=== PATIENT | male | born 1960 | race Caucasian/White ===

== ENCOUNTER 2019-12-16 21:44 | Emergency (ER) | payer MEDICAID ==
[~2019-12-16] VITALS: Ht 165.1 cm; Wt 81.6 kg
[2019-12-16 22:44] VITALS: BP 143/86
--- NOTE | 2019-12-16 23:02 | NUR ---
PATIENT CAME TO ER BED 11 C/O HEARING VOICES AND PLANNING TO OVERDOSE ON HIS MEDS. PATIENT IS AAOX4. NO SOB. BREATHING EVENLY AND UNLABORED ON ROOM AIR. PATIENT IS CONNECTED TO MONITOR. SITTER AT BEDSIDE. PATIENT IS CHANGED INTO A GOWN, WITH BELONGINGS REMOVED AND PLACED SAFELY IN A LOCKER.
[2019-12-16 23:04] LABS: BASOPHILS # (AUTO) 0.1 /CMM (0.0-0.2); BASOPHILS % (AUTO) 0.7 % (0.0-2.0); EOSINOPHILS % (AUTO) 2.3 % (0.0-6.0); HEMATOCRIT 51 % (39-51); HEMOGLOBIN 17.2 g/dL (13.5-17.5); LYMPHOCYTES # (AUTO) 3.1 /CMM (0.8-4.8); LYMPHOCYTES % (AUTO) 28.1 % (20.0-44.0); MEAN CORPUSCULAR HGB CONC 34 g/dl (31.0-36.0); MEAN CORPUSCULAR VOLUME 97 fL (80-96); NEUTROPHILS # (AUTO) 6.6 /CMM (1.8-8.9); NEUTROPHILS % (AUTO) 59.9 % (43.0-81.0); PLATELET COUNT (AUTO) 283 /CMM (150-450); RED BLOOD CELL COUNT(AUTO) 5.22 MIL/uL (4.5-6.0)
[2019-12-16 23:10] LABS: APPEARANCE,URINE Clear (CLEAR); BACTERIA,URINE None seen /HPF (None Seen); BILIRUBIN,URINE Negative (NEGATIVE); BLOOD, URINE Negative Ery/uL (NEGATIVE); COLOR,URINE Yellow (YELLOW); KETONES,URINE Negative (NEGATIVE); LEUKOCYTE ESTERASE ,URINE Negative (NEGATIVE); NITRITE, URINE Negative (NEGATIVE); PROTEIN,URINE Negative (NEGATIVE); RBC,URINE NONE SEEN /HPF (0-2); SQUAMOUS EPITHELIAL CELL,UR Rare /HPF (None Seen); UGLUCOSE >=1000 mg/dL (NEGATIVE); UROBILINOGEN,URINE 0.2 EU/dL (0.2); WBC,URINE NONE SEEN /HPF (0-3)
--- NOTE | 2019-12-16 23:10 | NUR ---
urine collected and sent to the lab.
[2019-12-16 23:13] LABS: CALCIUM, SERUM 9.7 mg/dL (8.5-10.1); CARBON DIOXIDE 21 mmol/L (21-32); CHLORIDE 101 mmol/L (98-107); CREATININE 1.1 mg/dL (0.6-1.3); GLUCOSE 291 mg/dL (74-106); POTASSIUM 3.5 mmol/L (3.5-5.1); SODIUM SERUM 136 mmol/L (136-145); UREA NITROGEN, BLOOD 28 mg/dL (7-18)
[2019-12-16 23:18] LABS: ALANINE AMINOTRANSFERASE 39 U/L (12-78); ALBUMIN 3.9 g/dL (3.4-5.0); ALKALINE PHOSPHATASE 92 U/L (46-116); ASPARTATE AMINOTRANSFERASE 22 U/L (15-37); BILIRUBIN,DIRECT 0.2 mg/dL (0.0-0.2); TOTAL PROTEIN, SERUM 8.2 g/dL (6.4-8.2)
[2019-12-16 23:21] LABS: ACETAMINOPHEN < 2 ug/ml (10-30); SALICYLATE 0.3 mg/dL (2.8-20.0)
[2019-12-16] MEDS ORDERED: IV NS 0.9% 1,000 ML BAG IV ONE (23:30)
[2019-12-16] MEDS ORDERED: INSULIN REGULAR, HUMAN 100 UNIT/ML 10 ML VIAL IV ONE (23:30)
[2019-12-17] MEDS ORDERED: ACETAMINOPHEN ES 500 MG TABLET PO ONE
[2019-12-17] MEDS ORDERED: ACETAMINOPHEN ES 500 MG TABLET ONE (00:27)
[2019-12-17] MEDS ORDERED: INSULIN REGULAR, HUMAN 100 UNIT/ML 10 ML VIAL ONE (00:27)
[2019-12-17 00:46] LABS: ALCOHOL, BLOOD < 3 mg/dL (0-0)
--- NOTE | 2019-12-17 02:07 | NUR ---
PT ACCEPTED AT [facility] PT WILL GO TO UNIT 1 PHONE# FOR REPORT ACCEPTING MD GALO.
--- NOTE | 2019-12-17 02:10 | NUR ---
PATIENT IS SLEEPING. EASILY AROUSABLE THROUGH VERBAL AND MECHANICAL STIMULI. CONNECTED TO THE MONITOR. BREATHING EVENLY AND UNLABORED ON ROOM AIR. SITTER AT BEDSIDE.
--- NOTE | 2019-12-17 02:24 | NUR ---
[facility] CALLED REGARDING TRANSPORT ([facility]) ETA 1HR
--- NOTE | 2019-12-17 02:45 | NUR ---
REPORT GIVEN TO DIOGO PÉREZ AT [facility].
--- NOTE | 2019-12-17 03:25 | NUR ---
IV removed. Catheter intact and site benign. Pressure and 4x4 applied to site. No bleeding noted.
--- NOTE | 2019-12-17 03:30 | NUR ---
REPORT GIVEN TO TRANSPORT. PT TRANSFERED.
--- NOTE | 2019-12-17 03:35 | NUR ---
[facility]iss[facility] eng in ED - 12/17/19 at 0355 by JOSE LUIS Patient discharged to home in stable condition. Written and verbal after care instructions given. Patient verbalizes understanding of instruction.
== END 2019-12-17 03:55 ==
LOC: ER 21:44
DX: F23 Brief psychotic disorder (principal); R45.851 Suicidal ideations; E11.65 Type 2 diabetes mellitus with hyperglycemia; E86.0 Dehydration; I10 Essential (primary) hypertension; K21.9 Gastro-esophageal reflux disease without esophagitis; Z20.828 Contact with and (suspected) exposure to other viral communicable diseases
CPT/HCPCS: 36415; 80048; 80076; 80305; 80307; 80329; 81001; 82962 ×3; 85025; 87426; 96361; 96374; 99285; C9803; G0480; J1815; J7030; 81000-TC